=== PATIENT | female | born 1990 | race Caucasian/White ===

== ENCOUNTER 2021-10-24 10:42 | Outpatient (CLI) | payer BC ==
[2021-10-25 08:58] LABS: SARS-CoV-2 PCR by NAA DETECTED (NotDetected)
== END 2021-10-24 10:43 | disposition home or self-care (01) ==
LOC: CSHLAB 10:42
PROVIDERS: ATTEND Obstetrics & Gynecology
DX: U07.1 COVID-19 (principal)
CPT/HCPCS: U0003; U0005

== ENCOUNTER 2021-10-25 03:39 | Inpatient (IN) | payer BC ==
[2021-10-25 04:12] VITALS: BMI 30.9
[2021-10-25] MEDS ORDERED: NS w/ Oxytocin 30 units 500 ML IV SCH ×2 (05:15→17:45)
[2021-10-25] MEDS ORDERED: Lactated Ringer's 1,000 ML IV SCH (05:15)
[2021-10-25] MEDS ORDERED: Acetaminophen 500 MG TAB PO PRN (05:15)
[2021-10-25] MEDS ORDERED: Ondansetron PF 4 MG/2 ML Vial IVP PRN ×3 (05:15→17:45)
[2021-10-25] MEDS ORDERED: Butorphanol Tartrate 1 MG/ML VIAL SLOW IVP PRN (05:15)
[2021-10-25] MEDS ORDERED: Promethazine HCl 25 MG/ML VIAL IM PRN ×2 (05:15→08:21)
[2021-10-25] MEDS ORDERED: hydrALAZINE 20 MG/ML VIAL SLOW IVP PRN ×2 (05:15→17:45)
[2021-10-25] MEDS ORDERED: Lidocaine 1% (PF) 30 ML VIAL SC PRN (05:15)
[2021-10-25] MEDS ORDERED: NS w/ Oxytocin 30 units 500 ML IVPB SCH (05:15)
[2021-10-25 05:27] LABS: Mean Corpuscular Hemoglobin 30.6 pg (27.0-33.0); Mean Corpuscular Volume 90.1 fl (81.6-98.3); Mean Platelet Volume 10.8 fl (7.4-10.4); Platelet Count 145 10x3/uL (150-450); RBC Distribution Width 13.3 % (11.5-14.5); Red Blood Cell (RBC) Count 3.92 10x6/uL (3.90-5.03); White Blood Cell (WBC) Count 7.1 10x3/uL (3.5-10.5)
[2021-10-25 06:00] LABS: Syphilis Antibody Nonreactive (Nonreactive); Syphilis Antibody Index 0.02 S/CO (<1.00 Non-Reactive)
[2021-10-25 06:03] LABS: Hep B Surf Ag Non-Reactive S/CO (NonReactive)
[2021-10-25] MEDS ORDERED: Fentanyl 2 mcg/Bup 0.1% Cadd 100 ML ONE ×2 (08:00→15:21)
[2021-10-25] MEDS ORDERED: Bupivacaine 0.25% HCL 30 ML VIAL ONE (08:00)
[2021-10-25] MEDS ORDERED: Lidocaine 2% PF 5 ML VIAL ONE (08:00)
[2021-10-25] MEDS ORDERED: Terbutaline Sulfate 1 MG/ML VIAL ONE (08:00)
[2021-10-25] MEDS ORDERED: ePHEDrine Sulfate 50 MG/10 ML VIAL ONE (08:00)
[2021-10-25] MEDS ORDERED: diphenhydrAMINE 50 MG/ML VIAL IVP PRN (08:21)
[2021-10-25] MEDS ORDERED: Naloxone HCl 0.4 mg/ml Vial IVP PRN ×2 (08:21)
[2021-10-25] MEDS ORDERED: ePHEDrine Sulfate 50 MG/10 ML VIAL SLOW IVP PRN (08:21)
[2021-10-25] MEDS ORDERED: Acetaminophen 325 MG TAB PO PRN (08:21)
[2021-10-25] MEDS ORDERED: Hydrocerin (Eucerin) Cream 120 gm Jar TOP PRN (08:21)
[2021-10-25] MEDS ORDERED: Lactated Ringer's 500 ML IV PRN (08:21)
[2021-10-25] MEDS ORDERED: Fentanyl 2 mcg/Bupivacaine 0.1% Cassette 100 ML EPIDURAL SCH (08:30)
[2021-10-25] MEDS ORDERED: Communication Order-Pharmacy FS SCH (08:30)
[2021-10-25] MEDS ORDERED: NS w/ Oxytocin 30 units 500 ML ONE (11:41)
[2021-10-25] MEDS ORDERED: Lanolin Ointment 7 GM TUBE TOP PRN (17:45)
[2021-10-25] MEDS ORDERED: Milk Of Magnesia 30 ML UDCUP PO PRN (17:45)
[2021-10-25] MEDS ORDERED: Benzocaine-Menthol 82.5 ML CAN TOP PRN (17:45)
[2021-10-25] MEDS ORDERED: diphenhydrAMINE 25 MG CAP PO PRN (17:45)
[2021-10-25] MEDS ORDERED: Misoprostol 200 MCG TAB VAG PRN (17:45)
[2021-10-25] MEDS ORDERED: Boostrix 0.5 ML (Tdap) VIAL IM ONE (17:45)
[2021-10-25] MEDS ORDERED: Preparation H Ointment 28 GM TUBE PR PRN (17:45)
[2021-10-25] MEDS ORDERED: Bisacodyl 10 MG SUPP PR PRN (17:45)
[2021-10-25] MEDS ORDERED: Zolpidem Tartrate 5 MG TAB PO PRN (17:45)
[2021-10-25] MEDS ORDERED: HYDROcodone/Acetaminophen 5/325 mg Tablet PO PRN ×2 (17:45)
[2021-10-25] MEDS: Ibuprofen 800 MG TAB PO SCH (22:04)
[2021-10-25] MEDS: Docusate 100 MG CAP PO SCH (22:04)
[2021-10-26] MEDS: Ibuprofen 800 MG TAB PO SCH ×2 (05:24→13:47)
[2021-10-26 05:29] LABS: Hemoglobin 11.3 g/dL (12.0-15.5); Mean Corpuscular HGB CONC 33.7 g/dL (32.0-36.0); Mean Corpuscular Hemoglobin 30.5 pg (27.0-33.0); Mean Corpuscular Volume 90.5 fl (81.6-98.3); Platelet Count 144 10x3/uL (150-450); RBC Distribution Width 13.8 % (11.5-14.5); White Blood Cell (WBC) Count 10.5 10x3/uL (3.5-10.5)
[2021-10-26] MEDS ORDERED: Prenatal Vitamin 1 TAB PO SCH (09:00)
[2021-10-26] MEDS: Docusate 100 MG CAP PO SCH (09:48)
[2021-10-26] MEDS: Ferrous Sulfate 325 MG TAB PO SCH ×2 (09:49→17:15)
[2021-10-26 12:34] VITALS: BP 113/62; TEMP 97.6
== END 2021-10-26 18:57 | disposition home or self-care (01) | DRG 805 ==
LOC: CSHLD/OP 03:39 → CSHLD 05:59 → CSHANTE 21:29
PROVIDERS: ADMIT Obstetrics & Gynecology; ATTEND Obstetrics & Gynecology
PROC: 10E0XZZ Delivery of Products of Conception, External Approach (ICD-10-PCS; principal; 2021-10-25)
DX: O98.52 Other viral diseases complicating childbirth (principal); U07.1 COVID-19; Z37.0 Single live birth; Z3A.39 39 weeks gestation of pregnancy
CPT/HCPCS: 36415; 51702; 85027; 86780; 86850; 86900; 86901; 87340; 99285; J2001; J3105; S0020; U0003; U0005